=== PATIENT | female | born 1975 | race Caucasian/White ===

== ENCOUNTER → 2021-06-14 | Outpatient (CLI) | payer OTHER ==
[~2021-06-14] MED LIST: FAMO20 PO; OMEP20ER; ONDA4 PO; SERT100 PO
== END | disposition home or self-care (01) ==
LOC: LAB 16:00 → LAB SHORT 16:00
DX: R39.0 Extravasation of urine (principal)
CPT/HCPCS: 87077; 87086; 87186

== ENCOUNTER 2021-08-06 04:39 | Observation (INO) | payer OTHER ==
[~2021-08-06] VITALS: Ht 165.1 cm; Wt 104.3 kg
[2021-08-06 05:09] LABS: BASOPHILS ABSOLUTE AUTO 0.06 K/mm3 (0.00-0.23); BASOPHILS PERCENT AUTO 1 % (0-2); EOSINOPHILS ABSOLUTE AUTO 0.22 K/mm3 (0.00-0.68); EOSINOPHILS PERCENT AUTO 2 % (0-6); Hematocrit 41.1 % (33.0-51.0); Hemoglobin 13.5 g/dL (11.5-16.0); IMMATURE GRAN ABSOLUTE AUTO 0.03 K/mm3 (0.00-0.10); IMMATURE GRAN PERCENT AUTO 0 % (0-1); LYMPHOCYTES ABSOLUTE AUTO 3.62 K/mm3 (0.84-5.20); LYMPHOCYTES PERCENT AUTO 34 % (21-46); MONOCYTES PERCENT AUTO 8 % (4-13); Mean Corpuscular HGB 29.9 pg (26.0-34.0); Mean Corpuscular HGB Conc 32.8 g/dL (31.5-36.5); Mean Corpuscular Volume 91 fL (80-100); Mean Platelet Volume 10.1 fL (9.1-12.4); NEUTROPHILS ABSOLUTE AUTO 5.95 K/mm3 (1.96-9.15); NEUTROPHILS PERCENT AUTO 56 % (41-73); Platelet Count 387 K/mm3 (150-400); RDW Coefficient Variation 12.9 % (11.7-14.2); RDW Standard Deviation 41.9 fL (35.1-46.3); Red Blood Cell Count 4.52 M/mm3 (3.80-5.20); White Blood Cell Count 10.68 K/mm3 (4.00-11.30)
[2021-08-06 05:35] LABS: Alanine Aminotransfer (ALT/SGP 55 U/L (12-78); Albumin, Blood 3.3 g/dL (3.4-5.0); Albumin/Globulin Ratio 0.8 (0.8-1.8); Alk Phos 107 U/L (50-136); Anion Gap 6 mmol/L (6-16); Aspartate Aminotrans (AST/SGOT 27 U/L (12-37); Bilirubin, Total 0.3 mg/dL (0.1-1.0); Blood Urea Nitrogen 13 mg/dL (8-24); Bun/Creatinine Ratio 16.1 (12.0-20.0); CO2, Blood 27 mmol/L (21-32); Calcium, Blood 9.9 mg/dL (8.5-10.1); Chloride, Blood 107 mmol/L (98-108); Creatinine, Blood 0.81 mg/dL (0.40-1.00); Globulin, Blood 3.9 g/dL (2.2-4.0); Glomerular Filtration Rate >60 (60-); Glucose, Blood 113 mg/dL (70-99); Potassium, Blood 3.9 mmol/L (3.5-5.5); Sodium, Blood 140 mmol/L (136-145); Total Protein, Blood 7.2 g/dL (6.4-8.2)
[2021-08-06 07:09] LABS: Source, Urine Clean Catch
[2021-08-06 07:56] LABS: Appearance, Urine Clear (Clear); Bilirubin, Urine Neg (Neg); Blood, Urine 4+ (Neg); Color, Urine Yellow (P-Yellow); Glucose Qualitative, Urine Neg (Neg); Ketones, Urine Neg (Neg); Leukocyte Esterase, Urine Neg (Neg); Nitrite, Urine Neg (Neg); Protein, Urine Neg (Neg); Specific Gravity, Urine 1.025 (1.003-1.022); Urobilinogen, Urine NORM (Normal)
[2021-08-06 08:12] LABS: Squamous Epithelial Cells Few /hpf (Few); White Blood Cells, Urine 0-2 /hpf (0-5)
[2021-08-06 08:13] LABS: Bacteria Few /hpf; Mucus Light (0-Heavy)
[2021-08-06 10:20] LABS: Influenza A, PCR NEGATIVE (NEGATIVE); Influenza B, PCR NEGATIVE (NEGATIVE); Resp Syncytial Virus, PCR NEGATIVE (NEGATIVE); SARS-Cov-2 (COVID-19) PCR, MMC NEGATIVE (NEGATIVE)
--- NOTE | 2021-08-06 10:27 | NUR ---
PT ARRIVED TO UNIT AT APROX 0900 FROM ER. PT WITH C/O RUQ PAIN, IMPROVED SINCE ADMINISTRATION OF TORADOL IN ER. PT HAS BEEN NPO SINCE APROX 0300, HAD A GLASS OF WATER AT THAT TIME WITH ZOFRAN. DR PACHECO IN TO CONSULT PT AT THIS TIME. PLAN FOR OR THIS AFTERNOON.
--- NOTE | 2021-08-06 11:13 | NUR ---
PT WOKE AT APROX 0930. PT IS ALERT AND INTERACTING APPROPRIATLY WITH STAFF. PER TELE HR WHILE AT REST 120'S, WHILE AWAKE AND PLAYING 140'S-NO RHYTHUM CHANGES. PT TAKING IN SMALL AMTS PT, IVF WERE RUNNING TKO AT 5ML/HR BUT PT SALINE LOCKED R/T INCREASED FALL RISK WITH INCREASED ENERGY LEVELS. PARENTS DID EXPRESS CONCERN OVER RED NON-RAISED RASH AT R CORNER OF MOUTH-STATES IT HAS BEEN THERE FOR A FEW WEEKS AND HAS NOT SHOWN IMPROVEMENT, WILL DISCUSS WITH .
--- NOTE | 2021-08-06 11:46 | NUR ---
PT TO DAY SURGERY AT APROX 1119
--- NOTE | 2021-08-06 15:56 | NUR ---
PT POD 0 LAP NED, LAP SITES X'S 3 C/D/I. PT HAS TOLERATED CLEAR LIQUIDS AND CRACKERS WITH NO N/V. AMBULATED INDEPENDENTLY TO BATHROOM AND VOIDED EASILY. REPORTS FLATUS. MEDICATED ONCE FOR PAIN WITH 5MG ROXICODONE. PLAN TO DC HOME TONIGHT IF PT FEELS COMFORTABLE.
--- NOTE | 2021-08-06 16:25 | NUR ---
ASSUMED CARE OF PATIENT FROM JESSICA SEN. PATEINT RESTING QUIETLY IN BED, DENIES PAIN AT THIS TIME. TOLERATINIG PO DIET WELL.
--- NOTE | 2021-08-06 17:00 | NUR ---
DISCHARGE VSS ONR A, TOLERATING PO DIET WELL, DENIES N/V. REPORTS MINIMAL PAIN AND IS TOLERABLE. VOIDING & AMBULATING W/O DIFFICULTY. DISCUSSED DISCHARGE INSTRICTIONS & SENT W/ PATIENT. ESCORTED OUT VIA W/C.
== END 2021-08-06 16:45 | disposition home or self-care (01) ==
LOC: ER 04:39 → SURS 04:40 → ER 06:33 → SURS 08:44
PROVIDERS: Emergency Medicine; Student in an Organized Health Care Education/Training Program; ADMIT Surgery
PROC: 0FT44ZZ Resection of Gallbladder, Percutaneous Endoscopic Approach (ICD-10-PCS; principal; 2021-08-06 12:45)
PROC: BF03YZZ Plain Radiography of Gallbladder and Bile Ducts using Other Contrast (ICD-10-PCS; principal; 2021-08-06 12:45)
DX: K80.10 Calculus of gallbladder with chronic cholecystitis without obstruction (principal); Z20.822 Contact with and (suspected) exposure to COVID-19; K76.0 Fatty (change of) liver, not elsewhere classified
CPT/HCPCS: 0241U; 36415; 76705; 80053; 81001; 83690; 85025; 88304; 96365; 96366; 96375; 99285-25; A9270; C1729; J0295; J1100; J1885; J2250; J2405; J2704; J3010; J7050; J7120

== ENCOUNTER → 2023-02-06 | Outpatient (CLI) | payer OTHER | LOC: LAB 11:20 → LAB SHORT 11:20 | DX: N39.0 Urinary tract infection, site not specified (principal) | CPT/HCPCS: 87086 ==

== ENCOUNTER → 2024-06-24 | Outpatient (CLI) | payer OTHER ==
[2024-06-24 18:37] LABS: Adenovirus Not Detected (NOT DETECT); Coronavirus 229E Not Detected (NOT DETECT); Coronavirus HKU1 Not Detected (NOT DETECT); Coronavirus NL63 Not Detected (NOT DETECT)
[2024-06-24 18:38] LABS: Bordetella pertussis Not Detected (NOT DETECT); Chlamydophila pneumoniae Not Detected (NOT DETECT); Coronavirus OC43 Not Detected (NOT DETECT); Human Metapneumovirus Not Detected (NOT DETECT); Human Rhinovirus/Enterovirus Not Detected (NOT DETECT); Influenza A/2009-H1 Detected (NOT DETECT); Influenza A/H1 Not Detected (NOT DETECT); Influenza A/H3 Not Detected (NOT DETECT); Influenza B Not Detected (NOT DETECT); Mycoplasma pneumoniae Not Detected (NOT DETECT); Parainfluenza Virus 1 Not Detected (NOT DETECT); Parainfluenza Virus 2 Not Detected (NOT DETECT); Parainfluenza Virus 3 Not Detected (NOT DETECT); Parainfluenza Virus 4 Not Detected (NOT DETECT); Respiratory Syncytial Virus Not Detected (NOT DETECT); SARS-Cov-2 (COVID-19), BioFire Not Detected (NOT DETECT)
== END ==
LOC: LAB SHORT 15:31 → LAB 15:31
PROVIDERS: Nurse Practitioner Family
DX: R05.9 Cough, unspecified (principal); R50.9 Fever, unspecified
CPT/HCPCS: 0202U

== ENCOUNTER 2024-07-08 13:42 | Emergency (ER) | payer OTHER ==
[~2024-07-08] VITALS: Ht 165.1 cm; Wt 104.3 kg
[2024-07-08] MEDS ORDERED: Acetaminophen 500 MG Tab PO ONE ×2 (14:20→16:50)
[2024-07-08] MEDS ORDERED: Ibuprofen 600 MG Tab PO ONE ×2 (14:20→16:50)
[2024-07-08 14:36] LABS: BASOPHILS ABSOLUTE AUTO 0.08 K/mm3 (0.00-0.23); BASOPHILS PERCENT AUTO 1 % (0-2); EOSINOPHILS ABSOLUTE AUTO 0.21 K/mm3 (0.00-0.68); EOSINOPHILS PERCENT AUTO 2 % (0-6); Hematocrit 38.9 % (33.0-51.0); Hemoglobin 13.1 g/dL (11.5-16.0); IMMATURE GRAN ABSOLUTE AUTO 0.04 K/mm3 (0.00-0.10); IMMATURE GRAN PERCENT AUTO 0 % (0-1); LYMPHOCYTES ABSOLUTE AUTO 3.83 K/mm3 (0.84-5.20); LYMPHOCYTES PERCENT AUTO 32 % (21-46); MONOCYTES ABSOLUTE AUTO 0.81 K/mm3 (0.16-1.47); MONOCYTES PERCENT AUTO 7 % (4-13); Mean Corpuscular HGB 30.3 pg (26.0-34.0); Mean Corpuscular HGB Conc 33.7 g/dL (31.5-36.5); Mean Corpuscular Volume 90 fL (80-100); Mean Platelet Volume 10.3 fL (9.1-12.4); NEUTROPHILS ABSOLUTE AUTO 6.85 K/mm3 (1.96-9.15); NEUTROPHILS PERCENT AUTO 58 % (41-73); Platelet Count 331 K/mm3 (150-400); RDW Coefficient Variation 13.1 % (11.7-14.2); RDW Standard Deviation 42.5 fL (35.1-46.3); Red Blood Cell Count 4.32 M/mm3 (3.80-5.20); White Blood Cell Count 11.82 K/mm3 (4.00-11.30)
[2024-07-08 15:03] LABS: Bun/Creatinine Ratio 16.9 (12.0-20.0); Calcium, Blood 9.2 mg/dL (8.5-10.1); Creatinine, Blood 0.77 mg/dL (0.40-1.00); Magnesium, Blood 2.4 mg/dL (1.6-2.4); Potassium, Blood 3.6 mmol/L (3.5-5.5)
[2024-07-08] MEDS ORDERED: ACET500 PO (17:29)
[2024-07-08 18:15] VITALS: BP 128/71
== END 2024-07-08 18:26 | disposition home or self-care (01) ==
LOC: ER 13:42
PROVIDERS: Emergency Medicine
DX: R07.89 Other chest pain (principal); R94.31 Abnormal electrocardiogram [ECG] [EKG]; Z90.49 Acquired absence of other specified parts of digestive tract; Z79.899 Other long term (current) drug therapy
CPT/HCPCS: 71046; 80048; 83735; 84484; 85025; 93005; 93010; 99285-25; A9270